=== PATIENT | male | born 1980 | race Caucasian/White ===

== ENCOUNTER 2025-02-05 01:36 | Day surgery (SDC) | payer OTHER, SELFPAY ==
[2025-02-04 14:30] VITALS: BMI 29.8
[2025-02-05 07:46] VITALS: BP 136/89; PULSE 71; RESP 18; TEMP 36.1; O2SAT 97; BMI 28.7
[2025-02-05] MEDS: LACTATED RINGERS 1,000 ML 150 ML IV CONT (07:53)
--- NOTE | 2025-02-05 08:47 | WPDANESEPPF ---
Anes - Initial Pre Proc Eval Procedure: Operation Date: 02/05/25 09:00 Proposed Procedures p Diagnostic Colonoscopy - Neftali Sandra MD Date/Time: 02/05/25 08:47 Surgeon: Neftali Sandra MD Pre Op Diagnosis: Gastrointestinal hemorrhage, unspecified Patient Data Age: 44 Gender: M Height: 1.93 m Weight: 107 kg Last Vital Signs Temp 97 F L 02/05/25 07:46 Pulse 71 02/05/25 07:46 Resp 18 02/05/25 07:46 BP 136/89 02/05/25 07:46 Pulse Ox 97 02/05/25 07:46 O2 Del Method Room Air 02/05/25 07:46 Allergies Allergy/AdvReac Type Severity Reaction Status Date / Time codeine Allergy Intermediate Rash Verified 02/05/25 07:45 Penicillins Allergy Intermediate Rash Verified 02/05/25 07:45 gadobenic acid (From Allergy Nausea and Verified 02/05/25 07:45 contrast - MRI) Vomiting Home Medications ?Medication ?Instructions ?Recorded ?Confirmed ?Type omeprazole 20 mg capsule,delayed 20 mg PO DAILY 02/04/25 02/05/25 History release Patient hx anesthesia problems: none Family hx anesthesia problems: none Results Review: All pre-operative results and documents have been reviewed as part of the pre-operative evaluation. [facility] Social History Social History Substance use type: does not use Living arrangements: incarcerated Anes - Eval Final PreProcedure Day of Procedure 02/05/25 08:47 Patient weight: overweight Lungs: normal air movement Airway: Mallampati scale class II Neurological: alert and oriented Last oral intake: >/= 8 hours ASA classification: II Emergent: no Anesthetic plan: proceed Anesthesia type and monitoring: general GIVS and standard monitoring Results Review: All pre-operative results and documents have been reviewed as part of the pre-operative evaluation. Melena for several months. Active w workouts no cp or sob. Informed Consent: The patient's anesthetic plan and its attendant risks and benefits were discussed with the patient/family/POA. Questions were solicited and answers provided to the satisfaction of the patient/family/POA.
--- NOTE | 2025-02-05 08:56 | PM.HPGS ---
History of Present Illness History of Present Illness Consent: Risks, benefits, and alternatives have been discussed and questions answered. Patient agrees to proceed with procedure. Chief complaint: Gastrointestinal hemorrhage, unspecified Narrative: Mario Schneider is a 44 year old male here for first colonoscopy, he is a prisoner with rectal bleeding for 1 month Review of Systems Review of Systems: All systems reviewed & are unremarkable except as noted in HPI and below PMFSH Past Medical History Medical History (Updated 02/05/25 @ 08:59 by Neftali Sandra MD) Rectal bleeding Social History Social History Substance use type: does not use Living arrangements: incarcerated Meds Home Medications and Allergies Home Medications ?Medication ?Instructions ?Recorded ?Confirmed ?Type omeprazole 20 mg capsule,delayed 20 mg PO DAILY 02/04/25 02/05/25 History release Allergies Allergy/AdvReac Type Severity Reaction Status Date / Time codeine Allergy Intermediate Rash Verified 02/05/25 07:45 Penicillins Allergy Intermediate Rash Verified 02/05/25 07:45 gadobenic acid (From Allergy Nausea and Verified 02/05/25 07:45 contrast - MRI) Vomiting Vital Signs Vital Signs - 24 hr 02/05/25 07:46 Temperature 97 F L Pulse Rate 71 Respiratory Rate 18 Blood Pressure 136/89 Pulse Oximetry 97 Oxygen Delivery Room Air Exam Const: General: comfortable and no acute distress HENMT: Face/Nose/Sinus: Normal nares present Eyes: General: appearance normal, both eyes and all related structures Neck: Neck: no JVD Resp: Auscultation: clear to auscultation bilaterally Cardio: Rate: regular rate Rhythm: regular rhythm GI: Inspection: non-distended GI Palp: Yes Soft to palpation Skin: General skin exam: normal color Neuro: Speech: normal speech Extrem: General: normal to inspection Psych: Mental Status: mental status grossly normal Assessment and Plan Assessment and plan (1) Rectal bleeding: Code(s): K62.5 - Hemorrhage of anus and rectum Status: Acute Assessment and Plan: colonoscopy
[2025-02-05 09:14] VITALS: BP 95/55; PULSE 67; RESP 15; O2SAT 97
[2025-02-05 09:24] VITALS: BP 117/69; PULSE 60; RESP 17; O2SAT 99
[2025-02-05 09:39] VITALS: BP 118/76; PULSE 61; RESP 17; O2SAT 100
== END 2025-02-05 09:46 | disposition home or self-care (01) ==
PROVIDERS: Visit Provider Internal Medicine Gastroenterology
PROC: 0DJD8ZZ Inspection of Lower Intestinal Tract, Via Natural or Artificial Opening Endoscopic (ICD-10-PCS; CPT 45378; principal; 2025-02-05 09:00)
DX: K64.8 Other hemorrhoids (principal)
CPT/HCPCS: 45378; J2704; J7120